=== PATIENT | female | born 1950 | race Caucasian/White ===

== ENCOUNTER 2019-11-28 01:08 | Outpatient (CLI) | payer MEDICARE, SELFPAY ==
[2019-11-28 18:30] LABS: SARS-CoV-2 RNA PCR Negative
== END 2019-11-28 01:09 | disposition home or self-care (01) ==
LOC: ANHCOVIDDT 01:08
PROVIDERS: PCP Internal Medicine; Visit Provider Internal Medicine Gastroenterology
DX: Z01.812 Encounter for preprocedural laboratory examination (principal); Z11.59 Encounter for screening for other viral diseases
CPT/HCPCS: 87635; C9803; U0003

== ENCOUNTER 2019-12-01 02:00 | Day surgery (SDC) | payer MEDICARE, SELFPAY ==
[2019-11-27 09:50] VITALS: BMI 36.5
--- NOTE | 2019-12-01 07:50 | WPDANESEPPF ---
Anes - Initial Pre Proc Eval Procedure: Operation Date: 12/01/19 13:15 Proposed Procedures p Esophagogastroduodenoscopy&Screen Colon - Brad Peralta MD Date/Time: 12/01/19 07:50 Surgeon: Brad Peralta MD Pre Op Diagnosis: Neoplasm Screening Patient Data Age: 69 Gender: F Height: 1.66 m Weight: 101 kg Allergies Allergy/AdvReac Type Severity Reaction Status Date / Time No Known Allergies Allergy Verified 12/01/19 12:20 Home Medications Medication Instructions Recorded Confirmed Type blood sugar diagnostic #10 each 05/05/19 05/05/19 History insulin syringe-needle U-100 0.5 #10 each 05/05/19 05/05/19 History mL 31 gauge x /16 metformin 500 mg tablet,extended 500 mg PO BID 05/05/19 11/27/19 History release 24 hr insulin human U-100 NPH-regulr See Rx Instructions SUB-Q DAILY ml 06/15/19 11/27/19 History 70-30 mix 100 unit/mL subcutaneous susp lisinopril 20 mg tablet 20 mg PO DAILY #90 tablet 07/17/19 11/27/19 Rx rosuvastatin 5 mg tablet 5 mg PO DAILY #90 tablet 07/17/19 11/27/19 Rx trazodone 300 mg tablet 300 mg PO .hs PRN #90 tablet 10/19/19 11/27/19 Rx venlafaxine 75 mg capsule,extended 75 mg PO DAILY #30 cap 11/19/19 11/27/19 Rx release 24 hr peg 3350-electrolytes 236 240 ml PO Q10M #4000 ml 11/26/19 Rx gram-22.74 gram-6.74 gram-5.86 gram solution topiramate 200 mg PO HS 11/27/19 11/27/19 History Patient hx anesthesia problems: none Family hx anesthesia problems: none PMFSH Past Medical History Medical History (Updated 12/01/19 @ 07:48 by Hugo Blackwell DO) Adenomatous colon polyp Anxiety Crohn's disease with complication Essential hypertension Type 2 diabetes mellitus with hyperglycemia Social History Social History Smoking status: Former smoker Second hand tobacco smoke exposure: No Smoking end date: 04/29/11 Alcohol intake: former Substance use: current Substance use type: marijuana Anes - Eval Final PreProcedure Day of Procedure 12/01/19 07:50 Patient weight: obese Heart: regular rate and rhythm Lungs: clear to auscultation and normal air movement Airway: Mallampati scale class II Neurological: alert and oriented Last oral intake: >/= 8 hours ASA classification: III Emergent: no Anesthetic plan: proceed Anesthesia type and monitoring: general GIVS and standard monitoring Informed Consent: The patient's anesthetic plan and its attendant risks and benefits were discussed with the patient/family/POA. Questions were solicited and answers provided to the satisfaction of the patient/family/POA.
[2019-12-01 12:24] VITALS: BP 167/73; PULSE 62; RESP 18; TEMP 37.1; O2SAT 97; BMI 35.2
[2019-12-01] MEDS: LACTATED RINGERS 1,000 ML 150 ML IV CONT (12:31)
[2019-12-01 12:33] LABS: Glucose Point of Care 137 (65-105)
[2019-12-01] MEDS: MIDAZOLAM HCL 2 MG/2 ML VIAL 1 MG IV PUSH (13:16)
[2019-12-01 13:20] VITALS: BP 156/67; PULSE 60; RESP 20; O2SAT 98
--- NOTE | 2019-12-01 13:24 | WPDHPUPDATE1 ---
History and Physical Update Update Date/Time: 12/01/19 13:24 History and Physical has been reviewed, including an updated exam of the patient. There are NO changes in the patient's condition. Risks, benefits, and alternatives have been discussed and questions answered. Patient agrees to proceed with procedure.
[2019-12-01 13:30] VITALS: BP 116/77; PULSE 55; RESP 18; O2SAT 98
[2019-12-01 13:54] VITALS: BP 116/58; PULSE 50; RESP 20; O2SAT 94
--- NOTE | 2019-12-01 14:02 | SUR.PHASEII ---
1402 -BLOOD SUGAR =111
[2019-12-01 14:04] VITALS: BP 126/65; PULSE 48; RESP 20; O2SAT 94
[2019-12-01 14:04] LABS: Glucose Point of Care 111 (65-105)
[2019-12-01 14:14] VITALS: BP 129/80; PULSE 57; RESP 16; O2SAT 96
== END 2019-12-01 14:27 | disposition home or self-care (01) ==
PROVIDERS: PCP Internal Medicine; Visit Provider Internal Medicine Gastroenterology
PROC: 0DJD8ZZ Inspection of Lower Intestinal Tract, Via Natural or Artificial Opening Endoscopic (ICD-10-PCS; CPT 45378; principal; 2019-12-01 13:15)
DX: R11.2 Nausea with vomiting, unspecified (principal); K50.90 Crohn's disease, unspecified, without complications; Z86.010 Personal history of colon polyps; I10 Essential (primary) hypertension; E11.9 Type 2 diabetes mellitus without complications; F41.9 Anxiety disorder, unspecified; Z79.4 Long term (current) use of insulin; Z87.891 Personal history of nicotine dependence; F12.90 Cannabis use, unspecified, uncomplicated; E66.9 Obesity, unspecified; Z68.35 Body mass index [BMI] 35.0-35.9, adult
CPT/HCPCS: 45380; 87635; 88305; C9803; J2250; J2704; J7120; U0003

== ENCOUNTER 2019-12-09 00:56 | Outpatient (CLI) | payer MEDICARE, SELFPAY ==
[2019-12-09 18:42] LABS: SARS-CoV-2 RNA PCR Negative
== END 2019-12-09 00:57 | disposition home or self-care (01) ==
LOC: ANHCOVIDDT 00:57
PROVIDERS: PCP Internal Medicine; Visit Provider Internal Medicine Gastroenterology
DX: Z01.812 Encounter for preprocedural laboratory examination (principal); Z20.828 Contact with and (suspected) exposure to other viral communicable diseases
CPT/HCPCS: 87635; C9803; U0003

== ENCOUNTER 2019-12-11 02:03 | Day surgery (SDC) | payer MEDICARE, SELFPAY ==
[2019-12-03 15:35] VITALS: BMI 35.2
[2019-12-11 08:55] LABS: Glucose Point of Care 154 (65-105)
[2019-12-11] MEDS: LACTATED RINGERS 1,000 ML 150 ML IV CONT (08:58)
[2019-12-11 09:01] VITALS: BP 153/79; PULSE 62; RESP 18; TEMP 36.3; O2SAT 99
--- NOTE | 2019-12-11 09:42 | WPDANESEPPF ---
Anes - Initial Pre Proc Eval Procedure: Operation Date: 12/11/19 09:30 Proposed Procedures p Esophagogastroduodenoscopy - Brad Peralta MD Date/Time: 12/11/19 09:42 Surgeon: Brad Peralta MD Pre Op Diagnosis: N & V Patient Data Age: 69 Gender: F Height: 5 ft 6 in Weight: 99 kg Last Vital Signs Temp 97.3 F L 12/11/19 09:01 Pulse 62 12/11/19 09:01 Resp 18 12/11/19 09:01 BP 153/79 H 12/11/19 09:01 Pulse Ox 99 12/11/19 09:01 Allergies Allergy/AdvReac Type Severity Reaction Status Date / Time No Known Allergies Allergy Verified 12/11/19 08:45 Home Medications Medication Instructions Recorded Confirmed Type blood sugar diagnostic #10 each 05/05/19 05/05/19 History insulin syringe-needle U-100 0.5 #10 each 05/05/19 05/05/19 History mL 31 gauge x 5/16 metformin 500 mg tablet,extended 500 mg PO BID 05/05/19 12/11/19 History release 24 hr insulin human U-100 NPH-regulr See Rx Instructions SUB-Q DAILY ml 06/15/19 12/11/19 History 70-30 mix 100 unit/mL subcutaneous susp lisinopril 20 mg tablet 20 mg PO DAILY #90 tablet 07/17/19 12/11/19 Rx rosuvastatin 5 mg tablet 5 mg PO DAILY #90 tablet 07/17/19 12/11/19 Rx trazodone 300 mg tablet 300 mg PO .hs PRN #90 tablet 10/19/19 12/11/19 Rx venlafaxine 75 mg capsule,extended 75 mg PO DAILY #30 cap 11/19/19 12/11/19 Rx release 24 hr topiramate 200 mg PO HS 11/27/19 12/11/19 History promethazine 25 mg tablet 25 mg PO Q8H PRN #90 tablet 12/01/19 12/11/19 Rx Laboratory Tests 12/11/19 08:53 POC Capillary Glucose 154 mg/dl H mg/dl (65-105) Patient hx anesthesia problems: none Family hx anesthesia problems: none PMFSH Past Medical History Medical History (Updated 12/01/19 @ 07:48 by Hugo Blackwell DO) Adenomatous colon polyp Anxiety Crohn's disease with complication Essential hypertension Type 2 diabetes mellitus with hyperglycemia Social History Social History Smoking status: Former smoker Second hand tobacco smoke exposure: No Smoking end date: 04/29/11 Alcohol intake: former Substance use: current Substance use type: marijuana Anes - Eval Final PreProcedure Day of Procedure 12/11/19 09:42 Patient weight: obese Heart: regular rate and rhythm Lungs: clear to auscultation Airway: Mallampati scale class II Neurological: alert and oriented Last oral intake: >/= 8 hours ASA classification: III Emergent: no Anesthetic plan: proceed Anesthesia type and monitoring: general GIVS and standard monitoring Informed Consent: The patient's anesthetic plan and its attendant risks and benefits were discussed with the patient/family/POA. Questions were solicited and answers provided to the satisfaction of the patient/family/POA.
--- NOTE | 2019-12-11 09:53 | WPDANESEPPF ---
Anes - Initial Pre Proc Eval Procedure: Operation Date: 12/11/19 09:30 Proposed Procedures p Esophagogastroduodenoscopy - Brad Peralta MD Date/Time: 12/11/19 09:53 Surgeon: Brad Peralta MD Pre Op Diagnosis: N & V Patient Data Age: 69 Gender: F Height: 5 ft 6 in Weight: 99 kg Last Vital Signs Temp 97.3 F L 12/11/19 09:01 Pulse 62 12/11/19 09:01 Resp 18 12/11/19 09:01 BP 153/79 H 12/11/19 09:01 Pulse Ox 99 12/11/19 09:01 Allergies Allergy/AdvReac Type Severity Reaction Status Date / Time No Known Allergies Allergy Verified 12/11/19 08:45 Home Medications Medication Instructions Recorded Confirmed Type blood sugar diagnostic #10 each 05/05/19 05/05/19 History insulin syringe-needle U-100 0.5 #10 each 05/05/19 05/05/19 History mL 31 gauge x 5/16 metformin 500 mg tablet,extended 500 mg PO BID 05/05/19 12/11/19 History release 24 hr insulin human U-100 NPH-regulr See Rx Instructions SUB-Q DAILY ml 06/15/19 12/11/19 History 70-30 mix 100 unit/mL subcutaneous susp lisinopril 20 mg tablet 20 mg PO DAILY #90 tablet 07/17/19 12/11/19 Rx rosuvastatin 5 mg tablet 5 mg PO DAILY #90 tablet 07/17/19 12/11/19 Rx trazodone 300 mg tablet 300 mg PO .hs PRN #90 tablet 10/19/19 12/11/19 Rx venlafaxine 75 mg capsule,extended 75 mg PO DAILY #30 cap 11/19/19 12/11/19 Rx release 24 hr topiramate 200 mg PO HS 11/27/19 12/11/19 History promethazine 25 mg tablet 25 mg PO Q8H PRN #90 tablet 12/01/19 12/11/19 Rx Laboratory Tests 12/11/19 08:53 POC Capillary Glucose 154 mg/dl H mg/dl (65-105) Patient hx anesthesia problems: none Family hx anesthesia problems: none PMFSH Past Medical History Medical History (Updated 12/01/19 @ 07:48 by Hugo Blackwell DO) Adenomatous colon polyp Anxiety Crohn's disease with complication Essential hypertension Type 2 diabetes mellitus with hyperglycemia Social History Social History Smoking status: Former smoker Second hand tobacco smoke exposure: No Smoking end date: 04/29/11 Alcohol intake: former Substance use: current Substance use type: marijuana Anes - Eval Final PreProcedure Day of Procedure 12/11/19 09:53 Patient weight: obese Heart: regular rate and rhythm Lungs: clear to auscultation Airway: Mallampati scale class III Neurological: alert and oriented Last oral intake: >/= 8 hours ASA classification: III Emergent: no Anesthetic plan: proceed Anesthesia type and monitoring: general GIVS and standard monitoring Informed Consent: The patient's anesthetic plan and its attendant risks and benefits were discussed with the patient/family/POA. Questions were solicited and answers provided to the satisfaction of the patient/family/POA.
--- NOTE | 2019-12-11 10:02 | WPDHPUPDATE1 ---
History and Physical Update Update Date/Time: 12/11/19 10:02 History and Physical has been reviewed, including an updated exam of the patient. There are NO changes in the patient's condition. Risks, benefits, and alternatives have been discussed and questions answered. Patient agrees to proceed with procedure.
[2019-12-11 10:25] VITALS: BP 107/54; PULSE 47; RESP 22; O2SAT 99
[2019-12-11 10:35] VITALS: BP 131/47; PULSE 48; RESP 19; O2SAT 99
[2019-12-11 10:45] VITALS: BP 145/54; PULSE 50; RESP 20; O2SAT 97
[2019-12-11 11:05] LABS: Glucose Point of Care 133 (65-105)
== END 2019-12-11 11:05 | disposition home or self-care (01) ==
PROVIDERS: PCP Internal Medicine; Visit Provider Internal Medicine Gastroenterology
PROC: 0DJ08ZZ Inspection of Upper Intestinal Tract, Via Natural or Artificial Opening Endoscopic (ICD-10-PCS; CPT 43235; principal; 2019-12-11 09:30)
DX: K29.50 Unspecified chronic gastritis without bleeding (principal); I10 Essential (primary) hypertension; E11.9 Type 2 diabetes mellitus without complications; K50.90 Crohn's disease, unspecified, without complications; F41.9 Anxiety disorder, unspecified; Z79.4 Long term (current) use of insulin; Z87.891 Personal history of nicotine dependence; E66.9 Obesity, unspecified; Z68.35 Body mass index [BMI] 35.0-35.9, adult
CPT/HCPCS: 43239; 87081; 87635; 88305; C9803; J2704; J7120; U0003

== ENCOUNTER 2020-01-05 09:15 | Outpatient (RCR) | payer MEDICARE, SELFPAY ==
[2019-12-31 09:44] VITALS: BMI 37.5
[2019-12-31 09:45] VITALS: BMI 37.5
== END 2020-03-21 11:31 | disposition home or self-care (01) ==
LOC: ANHDMC 09:15
PROVIDERS: PCP Internal Medicine; Visit Provider Internal Medicine
DX: E11.65 Type 2 diabetes mellitus with hyperglycemia (principal); Z71.3 Dietary counseling and surveillance; Z71.89 Other specified counseling
CPT/HCPCS: 97802; G0108

== ENCOUNTER → 2020-06-13 01:45 | Outpatient (CLI) | payer MEDICARE, SELFPAY ==
[2020-06-13 19:34] LABS: SARS-CoV-2 RNA PCR Negative
== END ==
PROVIDERS: PCP Internal Medicine; Visit Provider Internal Medicine Critical Care Medicine
DX: R68.89 Other general symptoms and signs (principal); Z20.822 Contact with and (suspected) exposure to COVID-19
CPT/HCPCS: C9803; U0003; U0005

== ENCOUNTER 2020-06-15 08:59 | Outpatient (CLI) | payer MEDICARE, SELFPAY ==
--- NOTE | 2020-06-27 10:13 | WPDSLEEPSTUD ---
Sleep Study Date of Study: 06/15/20 Ordering Provider: Raymond Alexandre PA-C Interpreting Physician: Ciera Winchester MD Sleep Study Type: Split Polysomnogram Height: 1.68 m Weight: 101.151 kg Body Mass Index: 35.9 Neck Circumference: 45.72 cm [place]: 9 Reason for Sleep Study Loud snoring Sleep History Leatha Nguyễn is a 69 year old female who saw sleep doctor about 18 years ago because she was eating during the night, was diagnosed with LUDY and used CPAP for a while. She now has new problems with her sleep including waking up choking on saliva. She has tried sleep medications for her insomnia as she has a difficult time falling asleep. She wakes up throughout the night, she has excessive daytime sleepiness, frequently coughs at night and always snoring loudly. She frequently awakens from sleep feeling short of breath. She rarely has trouble sleep with a cold. She frequently wakes up gasping during the night. She frequently has breathing problems observed by others. She occasionally sweats excessively at night. She does not notice her heart pounding or beating irregularly at night. She occasionally falls asleep during the day. She does not fall asleep involuntarily or while driving the car. She does not fall asleep during physical effort. She does not have loss of muscle tone was strong emotion. Does not have daytime difficulties due to her excessive sleepiness. She does not feel paralyzed on waking or falling asleep. She rarely has vivid dreamlike scenes upon awakening or falling asleep. She does not feel afraid to go to sleep. She does not have nightmares. She rarely remembers her dreams. She occasionally has racing thoughts. She rarely feels sad or depressed. She occasionally has anxiety. She occasionally notices parts of her body jerking and she occasionally kicks at night. She occasionally has crawling and aching feelings in her legs and leg pain during the night. She does not have morning jaw pain and she does not grind her teeth during sleep. She rarely is bothered by pain during the day. She rarely is awakened by pain at night, rarely wakes up feeling stiff in the morning with sore achy muscles are pain in the neck and spine. She has insomnia and stomach problems. Normal bedtime varies, and she does not provide her usual bedtime. She takes between 30 and 90 minutes to fall asleep. She wakes up about 4 times on average night. Sometimes she may stay awake for few minutes and other times it may be hours. If she is awake for quite a while she will get up. Her normal wake up time is 3:00 a.m.. She estimates getting 4-6 hours of sleep on an average night. She denies taking naps. A short nap is not refreshing. She is usually drowsy in the morning. She feels better in the evening compared to the morning. [facility] Past Medical History Medical History Adenomatous colon polyp Anxiety Crohn's disease with complication Erosive gastritis Essential hypertension Indeterminate colitis Nausea Type 2 diabetes mellitus with hyperglycemia Surgical History Surgical History (Updated 06/27/20 @ 10:42 by Ciera Winchester MD) History of hysterectomy 2011 Family History Family History Mother Hypertension Father Patient's father is in good health Sibling Patient's sister is in good health Other Family history of alcoholism Family history of glaucoma Social History Social History Smoking packs per day: 0.25 Smoking cigarettes per day: 5.0 Years smoked: 3 Smoking pack-years: 0.75 Smoking status: Current some day smoker Second hand tobacco smoke exposure: No Smoking end date: 04/29/11 Alcohol intake: former Substance use: current Substance use type: marijuana Spiritual care concerns: No Medications Home Medications
[2020-06-27 10:25] VITALS: BMI 35.9
== END 2020-06-15 09:00 | disposition home or self-care (01) ==
LOC: ANHCSM 09:01
PROVIDERS: PCP Internal Medicine; Visit Provider Physician Assistant
DX: G47.33 Obstructive sleep apnea (adult) (pediatric) (principal); Z79.899 Other long term (current) drug therapy; Z68.36 Body mass index [BMI] 36.0-36.9, adult
CPT/HCPCS: 95811

== ENCOUNTER 2020-07-18 09:43 | Outpatient (CLI) | payer MEDICARE, SELFPAY ==
--- NOTE | ~2020-07-18 | NM_ITS ---
EXAM: NM gastric emptying study DATE: 07/18/2020 14:54 INDICATION: Nausea TECHNIQUE: A gastric emptying study was performed using the methodology of Naz BARAHONA, et al. J Nucl Med 2007; 48:568-572. The patient was given a meal consisting of 2 scrambled eggs labeled with 0.977 mCi Tc-99m sulfur colloid, 2 slices of toast, two packages of jam, and approximately 120 mL of water . Simultaneous anterior and posterior 1-min images of the abdomen were obtained with the patient supi ne at multiple time points over a total period of 4 hours. The geometric mean of anterior and posteri or views was determined, and the percentage retention was calculated for each time point. COMPARISON: None. FINDINGS: Gastric retention of the radiotracer-labeled meal was 80%, 44%, and 2% at the 1-hour, 2-hour, and 4-h our time points, respectively. With this technique, apparent rapid gastric emptying is suggested by < 30% gastric retention at 1 hour. Delayed gastric emptying is defined by gastric retention of >90% at 1 hour, >60% retention at 2 hours, or >10% retention at 4 hours. IMPRESSION: 1. Normal gastric emptying. Reviewed, dictated and finalized at location A. IMPRESSION: 1. Normal gastric emptying.
== END 2020-07-18 09:44 | disposition home or self-care (01) ==
PROVIDERS: PCP Internal Medicine; Visit Provider Internal Medicine Gastroenterology
DX: R11.0 Nausea (principal); E11.65 Type 2 diabetes mellitus with hyperglycemia
CPT/HCPCS: 78264; A9541

== ENCOUNTER 2021-01-11 14:56 | Outpatient (CLI) | payer MEDICARE, SELFPAY ==
--- NOTE | ~2021-01-11 | MM_ITS ---
EXAMINATION: MM screening joel BI w sanjuanita HISTORY: Screening TECHNIQUE: Craniocaudal and mediolateral oblique 3-D tomosynthesis images were obtained and synthetic 2-D images were generated. CAD analysis was submitted and interpreted. COMPARISON: 12/16/2012 BREAST PARENCHYMAL COMPOSITION: There are scattered areas of fibroglandular density. FINDINGS: There is no evidence of suspicious mass, calcification, or architectural distortion to sugg est malignancy in either breast. There has been no suspicious interval change. IMPRESSION: 1. No mammographic evidence of malignancy. 2. Recommend routine screening mammography in one year. BI-RADS Category 1: Negative Reviewed, dictated and finalized at location A.
== END 2021-01-11 14:57 | disposition home or self-care (01) ==
LOC: ANHIMG 14:57
PROVIDERS: PCP Internal Medicine; Visit Provider Internal Medicine
DX: Z12.31 Encounter for screening mammogram for malignant neoplasm of breast (principal)
CPT/HCPCS: 77063; 77067

== ENCOUNTER 2021-05-08 15:57 | Outpatient (CLI) | payer MEDICARE, SELFPAY ==
[2021-05-08 18:11] LABS: SARS-CoV-2 RNA PCR Positive (Negative)
== END 2021-05-08 15:58 | disposition home or self-care (01) ==
LOC: CHSLAB 16:00
PROVIDERS: PCP Internal Medicine; Visit Provider Physician Assistant
DX: U07.1 COVID-19 (principal); R68.89 Other general symptoms and signs
CPT/HCPCS: C9803; U0003; U0005

== ENCOUNTER 2022-01-30 10:30 | Outpatient (RCR) | payer MEDICARE, SELFPAY | END 2022-03-06 08:42 | disposition home or self-care (01) | LOC: ANHDMC 10:30 | PROVIDERS: PCP Internal Medicine; Visit Provider Nurse Practitioner Family | DX: E11.65 Type 2 diabetes mellitus with hyperglycemia (principal); Z71.89 Other specified counseling | CPT/HCPCS: G0108 ==

== ENCOUNTER 2022-06-19 10:34 | Outpatient (RCR) | payer MEDICARE, SELFPAY | END 2022-09-03 13:18 | disposition home or self-care (01) | LOC: ANHDMC 10:34 | PROVIDERS: PCP Internal Medicine; Visit Provider Nurse Practitioner Family | DX: E11.65 Type 2 diabetes mellitus with hyperglycemia (principal); Z71.89 Other specified counseling | CPT/HCPCS: G0108 ==

== ENCOUNTER 2022-07-12 14:53 | Outpatient (CLI) | payer MEDICARE, SELFPAY ==
[2022-07-12 17:19] LABS: Anion Gap 7 mmol/L (8-16); Blood Urea Nitrogen 17 mg/dL (7-17); Carbon Dioxide 27 mmol/L (22-30); Chloride 108 mmol/L (98-107); Estimated Glomerular Filt Rate 55; Glucose 115 mg/dL (65-110); HDL Direct 32 mg/dL; Potassium 4.1 mmol/L (3.4-5.0); Sodium 142 mmol/L (137-145)
[2022-07-12 17:30] LABS: LDL Cholesterol Direct 60 mg/dL
[2022-07-12 17:51] LABS: Thyroid Stimulating Hormone 0.379 uIU/mL (0.465-4.680)
[2022-07-12 18:07] LABS: Creatinine Urine 321.1 mg/dL
[2022-07-12 18:25] LABS: MALB Creatinine Ratio 109.5 mg/g (0-30); Microalbumin Urine Random 351.5 mg/L (0-16.7)
[2022-07-12 19:18] LABS: Free T4 Free Thyroxine 0.78 ng/mL (0.78-2.19)
== END 2022-07-12 14:54 | disposition home or self-care (01) ==
LOC: ANHWCLAB 14:55
PROVIDERS: PCP Internal Medicine; Visit Provider Internal Medicine Endocrinology, Diabetes & Metabolism
DX: R79.89 Other specified abnormal findings of blood chemistry (principal); Z78.0 Asymptomatic menopausal state; E11.9 Type 2 diabetes mellitus without complications; E78.5 Hyperlipidemia, unspecified
CPT/HCPCS: 36415; 80048; 82043; 82607; 83718; 83721; 84439; 84443

== ENCOUNTER 2022-08-27 15:42 | Outpatient (CLI) | payer MEDICARE, SELFPAY ==
[2022-08-27 16:13] LABS: Appearance Urine Turbid (Clear); Bacteria Urine None Seen /hpf; Bilirubin Urine 1+ (Negative); Blood Urine 3+ (Negative); Color Urine Dark Yellow (Yellow); Glucose Urine UA 2+ mg/dL (Negative); Ketones Urine Negative (Negative); Leukocyte Esterase Ur 3+ LEU/UL (NEGATIVE); Need Manual Microscopic Reviewed; Nitrate Urine Positive (Negative); Non Pathogenic Casts 0-2; Protein Urine 1+ mg/dL (Negative); RBC Urine 21-50 /hpf (0-2); Specific Grav Ur 1.009 (1.001-1.035); Squamous Epithelial Cell Urine None seen /hpf (Few); WBC Urine >100 /hpf (0-3)
[2022-08-27 16:15] LABS: Add Urine Microscopic? YES
== END 2022-08-27 15:43 | disposition home or self-care (01) ==
LOC: ANHLAB 15:43
PROVIDERS: PCP Internal Medicine; Visit Provider Physician Assistant
DX: R30.0 Dysuria (principal)
CPT/HCPCS: 81001; 87086; 87088

== ENCOUNTER 2022-10-23 13:59 | Outpatient (CLI) | payer MEDICARE, SELFPAY ==
[2022-10-23 17:28] LABS: Thyroid Stimulating Hormone 0.471 uIU/mL (0.465-4.680)
[2022-10-23 18:44] LABS: Free T4 Free Thyroxine 0.76 ng/mL (0.78-2.19)
== END 2022-10-23 14:00 | disposition home or self-care (01) ==
LOC: ANHWCLAB 14:01
PROVIDERS: PCP Internal Medicine; Visit Provider Nurse Practitioner Family
DX: E78.5 Hyperlipidemia, unspecified (principal); R79.89 Other specified abnormal findings of blood chemistry
CPT/HCPCS: 36415; 84439; 84443

== ENCOUNTER 2023-08-02 09:10 | Outpatient (CLI) | payer MEDICARE, SELFPAY ==
--- NOTE | ~2023-08-02 | MM_ITS ---
EXAMINATION: MM screening joel BI w sanjuanita HISTORY: Screening TECHNIQUE: Craniocaudal and mediolateral oblique 3-D tomosynthesis images were obtained and synthetic 2-D images were generated. CAD analysis was submitted and interpreted. COMPARISON: 01/11/2021 BREAST PARENCHYMAL COMPOSITION: Not dense: There are scattered areas of fibroglandular density. FINDINGS: There is no evidence of suspicious mass, calcification, or architectural distortion to sugg est malignancy in either breast. There has been no suspicious interval change. IMPRESSION: 1. No mammographic evidence of malignancy. 2. Recommend routine screening mammography in one year. BI-RADS Category 1: Negative Reviewed, dictated and finalized at location A.
== END 2023-08-02 09:11 | disposition home or self-care (01) ==
LOC: ANHIMG 09:13
PROVIDERS: PCP Internal Medicine; Visit Provider Internal Medicine
DX: Z12.31 Encounter for screening mammogram for malignant neoplasm of breast (principal)
CPT/HCPCS: 77063; 77067

== ENCOUNTER 2023-08-14 10:55 | Outpatient (CLI) | payer MEDICARE, SELFPAY ==
[2023-08-16 17:49] LABS: NIL 0.08 IU/mL; Quantiferon TB Plus, 1T NEGATIVE (NEGATIVE); TB1-NIL 0.01 IU/mL; TB2-NIL 0.02 IU/mL
== END 2023-08-14 10:56 | disposition home or self-care (01) ==
LOC: ANHLAB 10:58
PROVIDERS: PCP Internal Medicine; Visit Provider Internal Medicine Gastroenterology
DX: K52.9 Noninfective gastroenteritis and colitis, unspecified (principal)
CPT/HCPCS: 36415; 86480

== ENCOUNTER 2024-04-01 09:12 | Outpatient (CLI) | payer MEDICARE, SELFPAY ==
--- NOTE | ~2024-04-01 | US_ITS ---
EXAMINATION: US carotid duplex BI DATE: 04/01/2024 11:22 INDICATION: Amaurosis fugax. TECHNIQUE: Grayscale, color Doppler, and pulsed Doppler images of the cervical carotid arteries were obtained. The degree of vessel stenosis is placed in one of the following categories: normal, <50%, 5 0-69%, >=70% but less than near-occlusion, near-occlusion, or total occlusion. Note that percent sten osis relative to normal distal artery lumen diameter is indirectly measured from velocity measurement s as described by Rohith, et al. Radiology 2003; 229:340-346. COMPARISON: None. FINDINGS: RIGHT: The right common carotid artery (CCA) peak systolic velocity (PSV) is 70 cm/s. The right internal car otid artery (ICA) PSV is 106 cm/s. The right ICA end-diastolic velocity (EDV) is 26 cm/s. The right I CA/CCA PSV ratio is 1.5. Grayscale and color Doppler images yield an estimate of <50% diameter reduct ion from plaque in the ICA. There is antegrade flow in the right vertebral artery. LEFT: The left CCA PSV is 76 cm/s. The left ICA PSV is 81 cm/s. The left ICA EDV is 19 cm/s. The left ICA/C CA PSV ratio is 1.1. Grayscale and color Doppler images yield an estimate of <50% diameter reduction from plaque in the ICA. There is antegrade flow in the left vertebral artery. IMPRESSION: 1. <50% stenosis in the right internal carotid artery. 2. <50% stenosis in the left internal carotid artery. Reviewed, dictated and finalized at location A. VARNISHER
== END 2024-04-01 09:13 | disposition home or self-care (01) ==
PROVIDERS: PCP Internal Medicine; Visit Provider Internal Medicine
DX: G45.3 Amaurosis fugax (principal)
CPT/HCPCS: 93880

== ENCOUNTER 2024-10-28 08:41 | Outpatient (CLI) | payer MEDICARE, SELFPAY ==
--- NOTE | ~2024-10-28 | MR_ITS ---
MRI of the brain Clinical History: Unspecified visual disturbance Technique: Axial and sagittal T1-weighted images were acquired. These were followed by axial T2-weigh arlette, diffusion weighted, gradient, and FLAIR images. Findings: There is no acute infarct, intracranial hemorrhage or mass lesion. There are moderate to se geronimo chronic white matter changes in the periventricular white matter, and in the lorraine. Probable smal l chronic lacunar infarcts present. Ventricles and subarachnoid spaces are unremarkable. Orbits are unremarkable. Paranasal sinuses and m astoid air cells are clear. Major intracranial flow voids are intact. Sagittal midline structures are intact. IMPRESSION: No acute abnormality. Moderate to severe chronic microvascular ischemic change and small chronic lacunar infarcts. Reviewed, dictated and finalized at location M. IMPRESSION: No acute abnormality. Moderate to severe chronic microvascular ischemic change and small chronic lacu heather infarcts.
== END 2024-10-28 08:42 | disposition home or self-care (01) ==
PROVIDERS: PCP Internal Medicine; Visit Provider Internal Medicine
DX: I67.82 Cerebral ischemia (principal); I63.81 Other cerebral infarction due to occlusion or stenosis of small artery
CPT/HCPCS: 70551

== ENCOUNTER 2025-02-15 10:04 | Outpatient (CLI) | payer MEDICARE, SELFPAY ==
[2025-02-15 10:49] LABS: Hematocrit 44.1 % (37.0-47.0); Hemoglobin 13.7 g/dL (12.0-15.0); Immature Granulocyte Percent A 0.5 % (0-0.5); Lymphocytes Absolute Auto 0.97 K/mm3 (0.9-3.2); Mean Corpuscular HGB Conc 31.1 g/dl (32-36); Mean Corpuscular Hemoglobin 28.1 pg (26-34); Mean Corpuscular Volume 90.4 fl (80-100); Nucleated Red Blood Cells Absolute Auto 0.000 K/mm3 (0.0-0.012); Nucleated Red Blood Cells Perc 0.0 % (0.0-0.2); Platelet Count Result 251 k/mm3 (150-375); Red Blood Count 4.88 M/mm3 (4.2-5.4); White Blood Count 8.0 K/mm3 (4.5-10.0)
[2025-02-15 11:13] LABS: Alanine Aminotransferase 14 U/L (6-35); Albumin Level 3.9 g/dL (3.5-5.1); Alkaline Phosphatase 84 U/L (38-126); Anion Gap 5 mmol/L (4-12); Aspartate Amino Transferase 20 U/L (14-36); Bilirubin,Total 0.3 mg/dL (0.2-1.3); Blood Urea Nitrogen 27 mg/dL (7-17); Calcium 8.5 mg/dL (8.4-10.2); Carbon Dioxide 27 mmol/L (22-30); Chloride 107 mmol/L (98-107); Cholesterol 197 mg/dL (0-200); Estimated Glomerular Filt Rate > 60; Glucose 112 mg/dL (65-110); HDL Direct 52 mg/dL; Potassium 4.0 mmol/L (3.4-5.0); Sodium 139 mmol/L (137-145); Total Protein 7.5 g/dL (6.3-8.2); Triglycerides 89 mg/dL (<150)
[2025-02-15 11:16] LABS: CRP 0.6 mg/dL (<1.0)
--- OUTSIDE RECORDS SUMMARY | 2025-02-15 11:37 | XMS_ITS | Clinical Summary ---
Author Organization [facility] Address [address] [place] [id number] Care Team Providers Care Home Health Caregiver Name Role Phone Unavailable Primary Care Provider Unavailabl e Social History Tobacco Use Types Packs/Day Years Used Date Smoking Tobacco: Never Assessed Comments Unknown Sex and Gender Information Value Date Recorded Sex Assigned at Not on file Legal Sex Female 7:29 PM CDT Gender Identity Not on file Sexual Orientation Not on file Plan of Treatment Health Maintenance Due Date Last Done Comments Colorectal Cancer Screening Colonoscopy (10 Years) 1950 Hepatitis C 11/01/1967 DTaP, Tdap and Td Vaccines ( 1 - Tdap) 1968 Pneumococcal Vaccine: 50+ Ye ars (1 of 1 - PCV) 11/01/1999 Zoster Vaccines (1 of 2) 11/01/1999 Dexa Scan (General) 2014 RSV Immunization or 60+ Years (1 - 1-dose 75+ series) 2024 COVID-19 Vaccine ( - 2023-2 5 season) 2024 Influenza Adult (#1) 2025 Hepatitis A Vaccines Aged Out No long er eligible based on patient's age to complete this topic Meningococcal B Vaccine Aged Out No l onger eligible based on patient's age to complete this topic Meningococcal Vaccine Aged Out No jatin gabe eligible based on patient's age to complete this topic RSV Immunizations Under 20 Months Aged Out No longer eligible based on patient's age to complete this topic
--- OUTSIDE RECORDS SUMMARY | 2025-02-15 11:37 | XMS_ITS | Clinical Summary ---
Author Organization [facility] [id number] [place] Address [address] [place] [id number] Care Team Providers Care Reconciliation Coordinator Name Role Phone Angel Young MD Primary Care Provider [phone] Allergies Active Allergy Reactions Criticality Noted Date Comments Iodine Other (See comments) Low 09/28/2021 Patient says that about 3 months ago she had a reaction to the iodine she was given. She says that her vision was just a white cloud that lasted for hours, into the following day. Says that going forward her doctor has been using very little iodine in her treatments, and has been rinsing the area very thoroughly. Medications acetaminophen (TYLENOL) 325 mg tablet Take 975 mg by mouth 3 (three) times a day 05/16/19 19 Active True Metrix Glucose Test Strip strip 09/24/19 22 Active budesonide EC (Entocort EC) 3 mg 24 hr capsule daily Active cholestyramine (QUESTRAN) 4 gram packet Mix the contents of 1 packet with 6 ounces of a non-carbonated beverage and drink prior to meals and at bedtime. 03/06/20 17 Active clobetasoL (TEMOVATE) 0.05 % ointment Apply topically 2 (two) times a day as needed Active docusate sodium (COLACE) 100 mg capsule Take 100 mg by mouth daily 05/17/19 19 Active ergocalciferol (VITAMIN D) 50,000 unit capsule TAKE 1 CAPSULE BY MOUTH ONCE A WEEK 02/03/20 17 Active escitalopram (Lexapro) 20 mg tablet daily Active HYDROcodone-luna taminophen (NORCO) 10-325 mg per tablet Take 1 tablet by mouth every 4 (four) hours as needed 05/29/19 19 Active insulin glargine (BASAGLAR) 100 unit/mL (3 mL) pen for injection INJECT SUBCUTANEOUSLY DIRECTED. Active insulin lispro (HumaLOG SADIA) 100 unit/mL half-unit pen for injection USE DIRECTED. Active latanoprost (XALATAN) 0.005 % ophthalmic solution 07/06/19 22 Active lisinopriL (PRINIVIL,ZESTR IL) 20 mg tablet 08/03/19 22 Active mesalamine (Apriso) 0.375 gram 24 hr capsule TAKE 4 CAPSULES DAILY 02/27/20 17 Active metaxalone (SKELAXIN) 800 mg tablet Take 800 mg by mouth 4 (four) times a day 05/16/19 19 Active metFORMIN (GLUCOPHAGE) 500 mg tablet Take 500-1,000 mg by mouth Active nortriptyline (PAMELOR) 10 mg capsule TAKE 1 CAPSULE AT BEDTIME. 06/18/19 18 Active ondansetron (ZOFRAN) 4 mg tablet 09/05/19 22 Active polyethylene glycol-electrol ytes-vitC (MoviPrep) 100-7.5-2.691 gram powder in packet USE DIRECTED. 01/23/20 17 Active predniSONE (DELTASONE) 10 mg tablet TAKE 4 TABLETS BY MOUTH DAILY 05/01/19 18 Active polyethylene glycol (MIRALAX) 17 gram/dose powder Take 17 g by mouth daily 05/17/19 19 Active prochlorperazin e (COMPAZINE) 10 mg tablet 07/18/19 22 Active Droplet Insulin Syr,half unit, 0.5 mL 31 gauge x 5/16 syringe 09/20/19 22 Active timolol (TIMOPTIC) 0.5 % ophthalmic solution 09/19/19 22 Active TiZANidine (ZANAFLEX) 2 mg capsule Take 2 mg by mouth every 8 (eight) hours as needed Active topiramate (TOPAMAX) 100 mg tablet 09/05/19 22 Active topiramate (TOPAMAX) 100 mg tablet Take 200 mg by mouth nightly Active traZODone (DESYREL) 150 mg tablet every 12 hours Activ e rosuvastatin (CRESTOR) 10 mg tablet Take 10 mg by mouth daily Active semaglutide (Ozempic) 0.25 mg or 0.5 mg(2 mg/1.5 mL) pen injector injection Inject under the skin Active promethazine (PHENERGAN) 12.5 mg suppository Insert 12.5 mg into the rectum every 6 (six) hours as needed for nausea or vomiting Active omeprazole (PriLOSEC) 10 mg capsule Take 10 mg by mouth daily Active Active Problems Problem Noted Date Diagnosed Date Pseudophakia, both eyes 09/28/2021 Assessment & Plan (09/28/2021 1:53 PM CDT): s/p CEIOL OU in 2018 s/p YAG cap OU Monovision, OD for distance and OS for near 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 Patient receiving injections with Dr. Dorantes. Discussed with her that vision may be limited by her central atrophy, but that treating visually significant DME with injection therapy is standard of care. 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 Dorantes s/p PPV/MP/EL for OD 02/2019 With ERM and DME. Patient receiving injection therapy with Dr. Dorantes. Discussed with patient that I agree treating her DME with injection therapy, and that she has ERM but would defer surgery at this time since there is no central ERM. She will continue to follow with Dr. Dorantes at [facility]. She is welcome to come back to Health system should she want care here. Surgical History Surgery Date Site/Laterality Comments HERNIA REPAIR Hernia repair OTHER SURGICAL HISTORY Psoriasis: Drug therapy HYSTERECTOMY Hysterectomy CATARACT EXTRACTION VITRECTOMY Medical History Medical History Date Comments Diabetes mellitus Diabetes Hyperlipidemia Hyperlipidemia Hypertension Hypertension Psoriasis 2011 Psoriasis; Outco me: failed Family History Medical History Relation Name Comments Breast cancer Mother Family history of malignant neoplasm of breast - (Added by TW Conv) Hypertension Mother Family history of hypertension - (Added by TW Conv) Breast cancer Other 1 Family history of Cancer -breast; Other Other 1 No family histo ry of Coronary artery disease; Other Other 2 No family histo ry of Diabetes mellitus; Relation Name Status Comments Mother Other 1 Other 2 Social History Tobacco Use Types Packs/Day Years Used Date Smoking Tobacco: Former Alcohol Use Standard Drinks/Week Comments No 0 (1 standard drink = 0.6 oz pur e alcohol) Comments Unknown Sex and Gender Information Value Date Recorded Sex Assigned at Not on file 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 Gender Identity Not on file Sexual Orientation Not on file Obstetrics History Last Filed Vital Signs Vital Sign Reading Time Taken Comments Blood Pressure 168/81 02/26/2017 11:09 AM CDT Pulse 64 02/26/2017 11:09 AM CDT Temperature - - Respiratory Rate - - Oxygen Saturation 96% 02/22/2015 10:03 AM CDT Inhaled Oxygen Concentration - - Weight 108.4 kg (239 lb) 02/26/2017 11:09 AM CDT Height 166.4 cm (5' 5.5) 02/26/2017 11:09 AM CD T Body Mass Index 39.17 02/26/2017 11:09 AM CDT Plan of Treatment Health Maintenance Due Date Last Done Comments Albumin Creatinine Ratio, Urine 1949 Depression Screening 1950 Fall Risk Assessment 1950 Hepatitis C Screening 1950 Osteoporosis Screening-Bone Density Scan 1950 eGFR 1950 Foot Exam 1949 DTaP/Tdap/Td Vaccine (1 - Tdap) 1960 Hepatitis B Screening 11/01/1967 Zoster Vaccine (1 of 2) 11/01/1999 Well Visit 65+ 2014 Lipid Panel 02/16/2015 02/16/2014, 10/20/2013 Pneumococcal vaccine 65+ (2 of 2 - PPSV23, PCV20, or PCV21) 04/23/2017 02/26/2017 Hemoglobin A1C 11/11/2018 05/14/2018 Dilated Eye Exam 09/28/2022 09/28/2021 Covid-19 Vaccine (4 - 2024-2 6 season) 2024 02/06/2021, 07/16/2020, 06/25/2020 Influenza Vaccine (#1) 2024 , 02/05/2020, 02/26/2017 Colon Cancer Screening-Colonoscopy 02/15/20272016 Colon Cancer Screening-CT Colonography Discontinued 02/15/2017 Colon Cancer Screening-DNA Stool Discontinued 02/16/20 Colon Cancer Screening-FIT Discontinued 02/15/2017 Colon Cancer Screening-Sigmoidoscopy Discontinued 01/28 Procedures Procedure Name Priority Date/Time Associated Diagnosis Comments COLONOSCOPY REPORT 02/15/2017 SERUM LIPID PANEL Routine 02/16/2014 12: 54 AM CDT from Last 3 Months or Most Recently Relevant to Health Maintenance Results * COLONOSCOPY REPORT (02/15/2017) Anatomical Region Laterality Modality Other us Provider Scanning GI PROCEDURE ORDERABLES Edited Result - Final * (ABNORMAL) Serum lipid panel (02/16/2014 12:54 AM CDT) Cholesterol 112 0 - 200 mg/dl HISTORICAL RESULTS Comment: Interpretive Data Desirable: <200 mg/dL Borderline high: 200-239 mg/dL High: >240 mg/dL Literature Reference: National Cholesterol Education Program (NCEP) Expert Panel on Detection, Evaluation, and Treatment of High Blood Cholesterol in Adults (Adult Treatment Panel III). Circulation 2004; 110:227. Current interpretive data was last revised on 2005. Triglycerides 78 0 - 150 mg/dl HISTORICAL RESULTS Comment: Interpretive Data Desirable: < 150 mg/dL Borderline High: 150 - 199 mg/dL High: > 200 mg/dL Literature Reference: See Cholesterol Current interpretive data was last revised on 06. HDL 30(L) 40 - 199 mg/dl HISTORICAL RESULTS Comment: Interpretive Data Less than 40 mg/dL - low; A major risk factor for heart disease. Greater than or equal to 60 mg/dL - High; considered protective of heart disease. Literature Reference: See Cholesterol Current interpretive data was last revised on 2007. LDL 66 0 - 129 mg/dl HISTORICAL RESULTS Comment: Interpretive Data Optimal: < 100 mg/dL Near Optimal: 100 - 129 mg/dL Borderline High: 130 - 159 mg/dL High: > 160 mg/dL Literature Reference: See Cholesterol Current interpretive data was last revised on 06. Non-HDL cholesterol, calculated 82 mg/dl HISTORICAL RESULTS Comment: Interpretive Data When triglycerides are >200 mg/dL, non-HDL C is a secondary target of therapy, with a goal 30 mg/dL higher than the identified LDL-C goal. Reference: See Cholesterol Reference. Current interpretive data was last revised 2011. Serum 02/16/2014 12:5 4 AM CDT us Tommy Rose MD LAB BLOOD ORDERABLES Final Resu lt HISTORICAL RESULTS from Last 3 Months or Most Recently Relevant to Health Maintenance Insurance [employer] CHOICE MEDICARE PPO HU[employer] MEDICARE HMO Care Teams Reconciliation Coordinator Relationship Specialty Start Date End Date Angel Young MD [address] [facility] [address] [place] [address] PCP - General 12/23/12
--- OUTSIDE RECORDS SUMMARY | 2025-02-15 11:37 | XMS_ITS | Clinical Summary ---
Author Organization [facility] Address [address] [address] Care Team Providers Care Fraternity House Cook Name Role Phone Angel Young DO Primary Care Provider [phone] Angel Young DO Unavailable [phone] Source Comments [facility],non-owned Affiliates and Associated Physician Practices is amultiple site organization consisting of ambulatory clinics and hospital sitesin [place], [place], [place] and [place]. This disclosure is being madepursuant to the Care Everywhere program and may not contain all information available regarding this patient. Last updated 18.[facility] Allergies No known active allergies Medications * Be aware that medications may not be up to date on this document. Alwaysverify current medications with the patient. escitalopram (LEXAPRO) 10 MG tablet Take 10 mg by mouth once daily Active metFORMIN (GLUCOPHAGE) 500 MG tablet Take 500-1,000 mg by mouth 2 times daily with morning and evening meal 500 mg in AM, and 1000 mg in PM Active traZODone (DESYREL) 100 MG tablet Take 100 mg by mouth at bedtime Active topiramate (TOPAMAX) 100 MG tablet Take 200 mg by mouth at bedtime Active Insulin NPH Isophane & Regular (NOVOLIN 70/30 SC) Inject 50 Units subcutaneously 2 times daily with morning and evening meal Active clobetasol (TEMOVATE) 0.05 % ointment Apply to affected area 2 times daily as needed Active acetaminophen (TYLENOL) 325 MG tablet Take 3 tablets by mouth 3 times daily Maximum allowable Acetaminophen amount = 4 Grams (4000 mg) / 24 hours. 9 Active docusate sodium (COLACE) 100 MG capsule Take 1 capsule by mouth once daily 30 capsule 9 Active polyethylene glycol 3350 (MIRALAX) packet Take 17 g by mouth once daily 20 packet 9 Active metaxalone (SKELAXIN) 800 MG tablet Take 1 tablet by mouth 4 times daily 60 tablet 9 Active tiZANidine (ZANAFLEX) 2 MG capsule Take 2 mg by mouth every 8 hours as needed for Muscle Spasms Active HYDROcodone-ac etaminophen (NORCO) 10-325 MG tablet Take 1 tablet by mouth every 4 hours as needed for Pain Please do not exceed 4 g (4000 mg) of tylenol daily. That would be an extra 2 g of tylenol on top of [place] 6 times a day 35 tablet 9 Active Active Problems Problem Noted Date Diagnosed Date Atherosclerosis of aorta 05/14/2018 Hepatic cyst 05/14/2018 Multiple renal cysts 05/14/2018 Left pulmonary contusion 05/14/2018 Bone lesion 05/14/2018 Overview (05/14/2018): L2 Laceration of spleen 05/12/2018 Multiple closed fractures of ribs of left side 0 05/12/2018 Type 2 diabetes mellitus wit h other diabetic ophthalmic complication 02/10/2015 Type 2 diabetes mellitus wit h mild nonproliferative retinopathy without macular edema 02/10/2015 Diplopia 02/03/2014 Retinal edema 01/05/2014 Sixth nerve palsy 11/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 Resolved Problems Problem Noted Date Diagnosed Date Resolved Date Posttraumatic respiratory insufficiency 05/16/2018 05/29/2018 Pulmonary edema 05/16/2018 05/29/2018 Fall 05/12/2018 05/29/2018 Family History Medical History Relation Name Comments Hypertension Father Hypertension Mother Relation Name Status Comments Father Mother Social History Tobacco Use Types Packs/Day Years Used Date Smoking Tobacco: Never Smokeless Tobacco: Never Tobacco Cessation:Counseling Given: Yes Alcohol Use Standard Drinks/Week Comments No 0 (1 standard drink = 0.6 oz pur e alcohol) Comments Unknown Sex and Gender Information Value Date Recorded Sex Assigned at Not on file Legal 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 Gender Identity Not on file Sexual Orientation Not on file Last Filed Vital Signs Vital Sign Reading Time Taken Comments Blood Pressure 153/88 05/29/2018 11:53 AM SHOWROOM SALES ASSISTANT Pulse 81 05/29/2018 11:53 AM SHOWROOM SALES ASSISTANT Temperature 36.9 C (98.5 F) 05/16/2018 12:46 PM SHOWROOM SALES ASSISTANT Respiratory Rate 18 05/16/2018 1:43 PM SHOWROOM SALES ASSISTANT Oxygen Saturation 94% 05/29/2018 11:53 AM SHOWROOM SALES ASSISTANT Inhaled Oxygen Concentration 21% 05/16/2018 1 :43 PM SHOWROOM SALES ASSISTANT Weight 103.4 kg (228 lb) 05/29/2018 11:53 AM SHOWROOM SALES ASSISTANT Height 167.6 cm (5' 6) 05/29/2018 11:53 AM SHOWROOM SALES ASSISTANT Body Mass Index 36.8 05/29/2018 11:53 AM SHOWROOM SALES ASSISTANT Plan of Treatment Health Maintenance Due Date Last Done Comments BONE DENSITY TESTING 1950 COLOGUARD (AGES 45-75) - COLON CA SCREENING 1949 COLON MONITORING 1949 COLONOSCOPY - COLON CA SCREENING 1949 CT COLONOGRAPHY - COLON CA SCREENING 1950 Colorectal Cancer Screening 1949 FIT - COLON CA SCREENING 1949 FLEX SIG - COLON CA SCREENING 1949 LIPID TESTING 1949 MAMMOGRAM 1949 HEPATITIS C SCREENING 10/27/1967 DTAP/TDAP/TD VACCINES (1 - Tdap) 1968 PNEUMOCOCCAL VACCINE 50+ (1 of 1 - PCV) 11/01/1999 ZOSTER VACCINE (1 of 2) 11/01/1999 SCREENING FOR DIABETES 05/16/2021 9, 05/16/2018, 05/16/2018, Additional history exists DEPRESSION SCREENING 04/29/2024 Respiratory Syncytial Virus (RSV) Vaccine Pt: or over 60 yrs (1 - 1-dose 75+ series) 2024 COVID-19 VACCINE ( - season) 2024 INFLUENZA VACCINE (#1) 2024 HEPATITIS B VACCINE Aged Out No longe r eligible based on patient's age to complete this topic HIB VACCINE Aged Out No longer eligi ble based on patient's age to complete this topic HPV VACCINE Aged Out No longer eligi ble based on patient's age to complete this topic MENINGOCOCCAL (Group B) VACCINE SHARED DECISION-MAKING Aged Out No longer eligible based on patient's age to complete this topic MENINGOCOCCAL GROUPS A/C/Y/W VACCINE Aged Out No longer eligible based on patient's age to complete this topic Procedures Procedure Name Priority Date/Time Associated Diagnosis Comments BASIC METABOLIC PANEL (CALCIUM TOTAL) Routine 05/16/2018 12:49 AM SHOWROOM SALES ASSISTANT from Last 3 Months or Most Recently Relevant to Health Maintenance Results * (ABNORMAL) BASIC METABOLIC PANEL (CALCIUM TOTAL) (05/16/2018 12:49 AM SHOWROOM SALES ASSISTANT) BUN 20 7 - 26 mg/dL 05/16/2018 1:40 AM [facility] Creatinine 0.8 0.6 - 1.2 mg/dL 05/16/2018 1:40 AM [facility] Sodium 139 136 - 145 mmol/L 05/16/2018 1:40 AM [facility] Potassium 3.7 3.5 - 4.5 mmol/L 05/16/2018 1:40 AM [facility] Chloride 106 98 - 107 mmol/L 05/16/2018 1:40 AM [facility] CO2 24 22 - 29 mmol/L 05/16/2018 1:40 AM [facility] Glucose 211(H) 70 - 115 mg/dL 05/16/2018 1:40 AM [facility] Calcium 8.1(L) 8.4 - 10.2 mg/dL 05/16/2018 1:40 AM [facility] Anion Gap 13 8 - 18 05/16/2018 1:40 AM [facility] BUN/Creatinine Ratio 25(H) 7 - 23 05/16/2018 1:40 AM [facility] Osmolality Calculated 297 270 - 300 mOsm/kg 05/16/2018 1:40 AM [facility] eGFR >60 >60 mL/min/1.7 3 m2 05/16/2018 1:40 AM [facility] Blood BLOOD SPECIMEN / Unknown Lab Venipuncture / Unknown 05/16/2018 12:49 AM SHOWROOM SALES ASSISTANT 05/16/2018 1:05 AM SHOWRO[employer] SALES ASSISTANT us Lyndsey Jacob MD LAB - CHEMISTRY ORDERABLES Anastasiia vinod Result [address] [phone] from Last 3 Months or Most Recently Relevant to Health Maintenance Advance Directives * Full Code (Latest Code Status on File) Date Activated Date Inactivated Comments 05/12/2018 8:17 PM 05/16/2018 5:45 PM Care Teams Fraternity House Cook Relationship Specialty Start Date End Date Angel Young DO [address] [place] [address] PCP - General Internal Medicine 05/12/18 Angel Young DO [address] [place] [address] 05/12/18
[2025-02-15 12:26] LABS: Vitamin B12 256.0 pg/mL (239-931)
== END 2025-02-15 10:05 | disposition home or self-care (01) ==
PROVIDERS: PCP Internal Medicine; Referring Provider Nurse Practitioner Family; Visit Provider Psychiatry & Neurology Neurology
DX: K50.90 Crohn's disease, unspecified, without complications (principal); Z68.36 Body mass index [BMI] 36.0-36.9, adult; E78.5 Hyperlipidemia, unspecified; I10 Essential (primary) hypertension; E11.9 Type 2 diabetes mellitus without complications; G47.33 Obstructive sleep apnea (adult) (pediatric); R74.8 Abnormal levels of other serum enzymes
CPT/HCPCS: 36415; 80053; 80061; 82306; 82607; 82746; 83090; 83921; 85025; 85652; 86140

== ENCOUNTER 2025-03-12 10:12 | Outpatient (CLI) | payer MEDICARE, SELFPAY ==
--- NOTE | ~2025-03-12 | CT_ITS ---
EXAM/PROCEDURE: CTA brain carotid HISTORY: E78.5 - Hyperlipidemia, unspecified COMPARISON: 05/12/2018 TECHNIQUE: Contrast-enhanced CT angiography of the head and neck performed. FINDINGS: Three-vessel left-sided arch present with both common carotid and cervical ICAs patent throughout. Approximately 25-30% stenosis with calcified plaque disease present in the proximal ICAs bilaterally. Vertebral arteries are also patent throughout with the right vertebral artery slightly dominant. Within the intracranial circulation, the intracranial carotid, basilar, as well as the anterior middle and posterior cerebral arteries are all patent. Dolichoectasia of the intracranial arteries present with both supraclinoid carotid arteries approaching 6 mm in diameter, and the basilar tip measuring approximately 5.3 mm. Moderately extensive calcified plaque present in both terminal carotid arteries. No discrete aneurysm, dural sinus thrombosis or AVM. No abnormal enhancing lesions or masses. No acute process seen in the intracranial contents, or visualized portions of the upper chest. IMPRESSION: No critical stenosis or occlusion. 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 Reviewed, dictated and finalized at location A. DONTIC ASSISTANT
== END 2025-03-12 10:13 | disposition home or self-care (01) ==
PROVIDERS: PCP Internal Medicine; Visit Provider Psychiatry & Neurology Neurology
DX: E78.5 Hyperlipidemia, unspecified (principal); I10 Essential (primary) hypertension; E11.9 Type 2 diabetes mellitus without complications; G47.33 Obstructive sleep apnea (adult) (pediatric)
CPT/HCPCS: 70496; 70498; Q9967